=== PATIENT | female | born 1970 | race African-American/Black ===

== ENCOUNTER 2017-05-28 22:01 | Emergency (ER) | payer SELFPAY ==
[~2017-05-28] VITALS: Ht 165.1 cm; Wt 61.0 kg
[2017-05-28 22:30] VITALS: BP 118/65
[2017-05-28] MEDS ORDERED: FLUORESCEIN SODIUM 1MG/STRIP OP ONE (23:00)
[2017-05-28] MEDS ORDERED: TETRACAINE 0.5% OPHTH DROPS 4ML OP ONE (23:00)
[2017-05-28] MEDS ORDERED: BALANCED SALT IRRIG SOLN 15ML IO ONE (23:00)
== END 2017-05-28 23:00 | disposition left against medical advice (07) ==
LOC: ER 22:26
DX: Z77.098 Contact with and (suspected) exposure to other hazardous, chiefly nonmedicinal, chemicals (principal); H57.12 Ocular pain, left eye; H57.8 Other specified disorders of eye and adnexa; Z88.0 Allergy status to penicillin
CPT/HCPCS: 99283; Z7610

== ENCOUNTER 2017-10-01 02:07 | Emergency (ER) | payer SELFPAY ==
[~2017-10-01] VITALS: Ht 165.1 cm; Wt 63.0 kg
[2017-10-01 02:10] VITALS: BP 120/75
== END 2017-10-01 06:45 | disposition left against medical advice (07) ==
LOC: ER 02:27
DX: Z53.21 Procedure and treatment not carried out due to patient leaving prior to being seen by health care provider (principal)

== ENCOUNTER 2017-10-03 23:12 | Emergency (ER) | payer SELFPAY ==
[~2017-10-03] VITALS: Ht 165.1 cm; Wt 72.0 kg
[2017-10-03 23:14] VITALS: BP 108/62
== END 2017-10-04 02:42 | disposition left against medical advice (07) ==
LOC: ER 23:14
DX: Z53.21 Procedure and treatment not carried out due to patient leaving prior to being seen by health care provider (principal)

== ENCOUNTER 2017-10-07 21:17 | Emergency (ER) | payer SELFPAY ==
[~2017-10-07] VITALS: Ht 165.1 cm; Wt 56.0 kg
[2017-10-07 22:09] VITALS: BP 115/80
== END 2017-10-08 02:41 | disposition left against medical advice (07) ==
LOC: ER 22:09
DX: R20.2 Paresthesia of skin (principal); Z53.21 Procedure and treatment not carried out due to patient leaving prior to being seen by health care provider

== ENCOUNTER 2017-10-09 03:19 | Emergency (ER) | payer SELFPAY ==
[~2017-10-09] VITALS: Ht 172.7 cm; Wt 61.0 kg
[2017-10-09 03:58] VITALS: BP 121/82
== END 2017-10-09 05:50 | disposition left against medical advice (07) ==
LOC: ER 03:19
DX: M79.1 Myalgia (principal); R07.9 Chest pain, unspecified; Z53.21 Procedure and treatment not carried out due to patient leaving prior to being seen by health care provider